=== PATIENT | female | born 1960 | race Caucasian/White ===

== ENCOUNTER → 2016-08-13 | Outpatient (CLI) | payer BC ==
[~2016-08-13] MED LIST: B-COCAP2 PO; HRBLS PO; LEVO100T7 PO; MULT-506 PO
--- NOTE | 2016-08-13 16:21 | MAMMOGRAPHY REPORT ---
BILATERAL DIGITAL SCREENING MAMMOGRAM TOMOSYNTHESIS WITH CAD: 08/13/2016 CLINICAL HISTORY: Routine screening. Patient has no complaints. TECHNIQUE: Breast tomosynthesis in addition to standard 2D mammography was performed. Current study was also evaluated with a Computer Aided Detection (CAD) system. COMPARISON: Comparison is made to exams dated: 08/13/2015 mammogram, 06/24/2014 ultrasound, 06/24/2014 mammogram, 06/14/2014 mammogram, 07/03/2013 localization, and 06/21/2013 mammogram - [facility]. BREAST COMPOSITION: The tissue of both breasts is heterogeneously dense, which may obscure small ma sses. FINDINGS: No suspicious masses, calcifications, or areas of architectural distortion are noted in e ither breast. There has been no significant interval change compared to prior exams. Bilateral dipak gn appearing calcifications are not significantly changed. A linear scar marker denotes a scar in t he left breast. IMPRESSION: ACR BI-RADS CATEGORY 2: BENIGN There is no mammographic evidence of malignancy. A 1 year screening mammogram is recommended. The p atient will receive written notification of the results. Approximately 10% of breast cancers are not detected with mammography. A negative mammographic repor t should not delay biopsy if a clinically suggestive mass is present. Clari Lopez M.D. ah/:08/13/2016 15:26:50 Tube Drawing Supervisor: Natividad SALGADO(R)(M), [facility] letter sent: Normal 1/2 BI-RADS Code: ACR BI-RADS Category 2: Benign
== END | disposition home or self-care (01) ==
LOC: C.MAMM 12:01
PROVIDERS: ATTEND Obstetrics & Gynecology
DX: Z12.31 Encounter for screening mammogram for malignant neoplasm of breast (principal); Z91.040 Latex allergy status

== ENCOUNTER → 2017-05-11 | Outpatient (CLI) | payer BC | END | disposition home or self-care (01) | LOC: C.LABSPEC 11:06 | PROVIDERS: ATTEND Obstetrics & Gynecology | DX: Z11.3 Encounter for screening for infections with a predominantly sexual mode of transmission (principal) ==

== ENCOUNTER → 2017-08-16 | Outpatient (CLI) | payer BC ==
--- NOTE | 2017-08-17 07:49 | MAMMOGRAPHY REPORT ---
BILATERAL DIGITAL SCREENING MAMMOGRAM TOMOSYNTHESIS WITH CAD: 08/16/2017 CLINICAL HISTORY: Routine screening. Patient has no complaints. TECHNIQUE: Breast tomosynthesis in addition to standard 2D mammography was performed. Current study was also evaluated with a Computer Aided Detection (CAD) system. COMPARISON: Comparison is made to exams dated: 08/13/2016 mammogram, 08/13/2015 mammogram, 06/24/2014 m ammogram, 06/14/2014 mammogram, 06/21/2013 mammogram, and 06/13/2013 mammogram - [facility] enter. BREAST COMPOSITION: The tissue of both breasts is heterogeneously dense, which may obscure small mas ses. FINDINGS: A linear scar marker overlies the 12:00 to 1:00 left breast. There is expected architectur al distortion seen in the 12:00 posterior left breast in the CC projection, likely denoting the area of prior surgery. There are stable intramammary lymph nodes in the right upper outer quadrant, and a few stable round and punctate microcalcifications scattered bilaterally. No new suspicious mass, ar chitectural distortion or cluster of microcalcifications is seen. IMPRESSION: ACR BI-RADS CATEGORY 1: NEGATIVE There is no mammographic evidence of malignancy. A 1 year screening mammogram is recommended. The pa tient will receive written notification of the results. Approximately 10% of breast cancers are not detected with mammography. A negative mammographic report should not delay biopsy if a clinically suggestive mass is present. Lisseth Wallace M.D. ay/:08/16/2017 15:34:04 Pigment Mixer: Yesenia Ocampo RT(R)(M)(BD), [facility] letter sent: Normal 1/2 BI-RADS Code: ACR BI-RADS Category 1: Negative
== END | disposition home or self-care (01) ==
LOC: C.MAMM 13:01
PROVIDERS: ATTEND Obstetrics & Gynecology
DX: Z12.31 Encounter for screening mammogram for malignant neoplasm of breast (principal)

== ENCOUNTER 2020-02-07 08:36 | Observation (INO) ==
[2020-02-07] MEDS ORDERED: KETOROLAC TROMETHAMINE 15 MG/ML VIAL IV ONE (08:53)
[2020-02-07] MEDS ORDERED: MoRPHine SULFATE 4 MG/ML 1 ML CARP\\VIAL IV STA (08:53)
[2020-02-07] MEDS ORDERED: ONDANSETRON INJ 2 MG/ML 2 ML VIAL IV STA (08:53)
[2020-02-07] MEDS ORDERED: SODIUM CHLORIDE 0.9% 500 ML IV SCH (09:00)
--- NOTE | 2020-02-07 09:00 | Emergency Department Note ---
Impression & Plan Pleuritic chest pain, Pulmonary emboli, Fracture of proximal end of humerus, Elevated d-dimer ED Provider Note NAME: ANNETTE LANGSTON AGE: 59 SEX: F : 1960 ARRIVES VIA: Walk-In INFORMANT: [Patient] ED PROVIDER(S): [Romaine Dorman MD] CHIEF COMPLAINT: Right rib and abdominal pain HISTORY OF PRESENT ILLNESS: The patient is a 59-year-old female who is healing from a left proximal humerus fracture. She is in a sling. The patient states that she has not had a bowel movement in about 5 days. She does not feel like she has to move her bowels though. She thinks she may be constipated from the medication she is using to control her shoulder pain. The patient states that yesterday towards the evening hours, about 12 to 14 hours ago, she began to experience some right lateral rib pain. She had a hard time sleeping last night and then this morning, the pain became severe. The pain is sharp. It radiates to her right shoulder. She states taking a breath makes the pain worse. The pain is constant. The patient states that she has not really been short of breath, there has been no fever. She has not had nausea or vomiting. No urinary complaints. She has never experienced pain like this before. There has been no trauma recently other than the fall that caused the left shoulder injury. REVIEW OF SYSTEMS: See HPI for pertinent positives and negatives. A total of ten systems were reviewed and were otherwise negative. PMHx/PSHx: See Below SOCIAL HISTORY: See Below. PHYSICAL EXAM: GENERAL: Patient is in mild distress from pain. HEENT: No acute trauma, normocephalic atraumatic, mucous membranes moist, no nasal congestion, no scleral icterus. NECK: No stridor, no adenopathy, no meningismus, trachea is midline. LUNGS: Clear to auscultation bilaterally, no wheeze, no rhonchi, breath sounds equal. Chest: Nontender chest wall, nontender ribs, no rash. HEART: Without murmurs gallops or rubs, regular rate and rhythm. ABDOMEN: Soft, nontender, bowel sounds positive, no hernias, no peritonitis. I cannot elicit any pain with palpation of the right upper quadrant. EXTREMITIES: No cyanosis or edema. The left arm is in a sling. No extremity deformities. NEUROLOGIC: Oriented x 3, no acute motor or sensory deficits, no focal weakness. SKIN: No rash, no jaundice, no diaphoresis. DIFFERENTIAL DIAGNOSIS: Cardiac ischemia, aortic dissection, pulmonary embolism, pneumothorax, pancreatitis, free air, biliary colic, pneumonia, pericarditis, myocarditis, esophageal rupture, GERD, cholecystitis, pancreatitis, musculoskeletal, as well as other pathologies. EMERGENCY DEPARTMENT COURSE/PROCEDURES: ECG: Indication was chest pain. The ECG shows a normal sinus rhythm with an incomplete right bundle branch block. The rate is 77. There is no ST elevation, no PVCs. The QTc is 441 Continuous Cardiac Monitoring: An order was placed for continuous cardiac monitoring. The monitor shows a rate of 70 with normal sinus rhythm. Critical Care Note: I have personally spent 41 minutes of critical care time in the direct management of this patient. This includes bedside care, interpretation of diagnostic studies, and testing, discussion with consultants, patient, and family members, and other required patient management activities. This 41 minutes is in excess of all separately billable procedures. MEDICAL DECISION MAKING: There is no leukocytosis or concerning anemia. No coagulopathy. D-dimer is quite elevated making PE more likely. No significant electrolyte abnormality or kidney failure. There was some subtle elevation to the bilirubin. Lipase was unremarkable, no evidence for pancreatitis. ECG shows a sinus rhythm, no acute ischemia. Cardiac enzyme testing x1 is not consistent with acute cardiac injury. Chest film showed some patchy infiltrates versus possible pulmonary infarcts. Chest CT shows bilateral pulmonary emboli. No pneumonia. Abdominal and pelvis CT was essentially unremarkable. The patient presents with pleuritic chest pain. She did fracture her left shoulder recently. She appears to have bilateral pulmonary emboli on work-up. I do think the pulmonary emboli explain her pleuritic pain. The patient was given IV saline, she was given IV morphine. She received IV Zofran. Patient was eventually placed on IV heparin. She was given an IV heparin bolus and then placed on IV heparin drip. She received IV Toradol for additional pain control. The patient is in need of a hospital stay. She requires anticoagulation and a PE/DVT work-up. I did speak to the patient, I spoke with case management. The on-call hospitalist was consulted. 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 Last drink 10 days ago) Alcohol type: wine Hx Substance Use: No Preferred Language: Frisian Communication Ability: Effective Manager Food Beverage Required: No Beliefs That Will Affect Care: None marital status: Single Current Living Situation: Family Current Living Situation Comment: daughter lives with her- has eye problem and depression/anxiety current occupational status: employed current occupation: [employer] Other Information That Helps Us Care for You: No Feels Safe at Home: Yes Safety Concerns: Feels Safe At This Time in current or past relationships, have you been: other Physical Activity Frequency: 5-6 Times per Week Physical Activity Frequency Comment: works out at [employer] gym Assistive Devices: Glasses Allergies Allergies Allergy/AdvReac Type Severity Reaction Status Date / Time levothyroxine Allergy Intermediate BACK OF Verified 02/07/20 09:52 THROAT FELT REAL WEIRD naproxen Allergy Intermediate Swelling Verified 02/07/20 09:52 procaine Allergy Intermediate SORES IN Verified 02/07/20 09:52 MOUTH WHEN GIVEN IN MOUTH latex Allergy Mild SKIN Verified 02/07/20 09:52 IRRITATION lidocaine Allergy Unknown Unknown Verified 02/07/20 09:52 Home Meds Home Medications Medication Instructions Recorded Confirmed cholecalciferol (vitamin D3) 25 25 mcg PO DAILY tab 02/27/19 02/07/20 mcg (1,000 unit) tablet lorazepam 0.5 mg tablet 0.5 mg PO TID PRN tab 02/27/19 02/07/20 multivitamin 1 tab PO DAILY 02/27/19 02/07/20 ascorbic acid (vitamin C) [Vitamin 1 g PO DAILY 01/27/20 02/07/20 C] fluticasone propionate [Flonase] 2 spray INTRANASAL DAILY 01/27/20 02/07/20 levothyroxine [Synthroid] 100 mcg PO QAM 01/27/20 02/07/20 olopatadine [Pataday] 1 drp OPB DAILY 01/27/20 02/07/20 vitamin B complex 1 tab PO DAILY 01/27/20 02/07/20 Results & Data (ED) Vital Signs Vital Signs - 24 hr 02/07/20 08:37 02/07/20 08:41 02/07/20 09:49 Temperature 37.4 C Temperature Source Oral Pulse Rate 82 Pulse Rate from SpO2 Sensor Respiratory Rate 20 Respiratory Effort / Characteristics Non-Labored Spontaneous Non-Labored Respiratory Depth Normal Respiratory Pattern Regular Blood Pressure 156/92 H Blood Pressure Mean 113 Pulse Oximetry 95 96 Oxygen Delivery Method Room Air Room Air Room Air Sepsis Recent Fever Within 48 Hours No Sepsis New/Unexplained Change in Mental Status N/A Sepsis Action Taken by Nursing No Action Required 02/07/20 10:00 02/07/20 10:02 02/07/20 10:45 Temperature Temperature Source Pulse Rate 74 74 77 Pulse Rate from SpO2 Sensor 75 75 80 Respiratory Rate 20 22 22 Respiratory Effort / Characteristics Respiratory Depth Respiratory Pattern Blood Pressure 133/89 Blood Pressure Mean 97 Pulse Oximetry 98 97 93 Oxygen Delivery Method Sepsis Recent Fever Within 48 Hours Sepsis New/Unexplained Change in Mental Status Sepsis Action Taken by Nursing 02/07/20 11:00 02/07/20 11:01 02/07/20 11:30 Temperature Temperature Source Pulse Rate 72 76 76 Pulse Rate from SpO2 Sensor 75 76 76 Respiratory Rate 23 25 H 23 Respiratory Effort / Characteristics Respiratory Depth Respiratory Pattern Blood Pressure 144/91 H 151/97 H Blood Pressure Mean 103 109 Pulse Oximetry 98 96 96 Oxygen Delivery Method Sepsis Recent Fever Within 48 Hours Sepsis New/Unexplained Change in Mental Status Sepsis Action Taken by Nursing 02/07/20 12:00 02/07/20 12:30 02/07/20 13:00 Temperature Temperature Source Pulse Rate 79 75 71 Pulse Rate from SpO2 Sensor Respiratory Rate 25 H 22 20 Respiratory Effort / Characteristics Respiratory Depth Respiratory Pattern Blood Pressure 135/87 130/88 124/84 Blood Pressure Mean 103 93 98 Pulse Oximetry Oxygen Delivery Method Sepsis Recent Fever Within 48 Hours Sepsis New/Unexplained Change in Mental Status Sepsis Action Taken by Nursing 02/07/20 13:30 02/07/20 14:00 02/07/20 14:30 Temperature Temperature Source Pulse Rate 66 69 67 Pulse Rate from SpO2 Sensor Respiratory Rate 14 21 15 Respiratory Effort / Characteristics Respiratory Depth Respiratory Pattern Blood Pressure 125/82 128/86 127/81 Blood Pressure Mean 86 94 88 Pulse Oximetry Oxygen Delivery Method Sepsis Recent Fever Within 48 Hours Sepsis New/Unexplained Change in Mental Status Sepsis Action Taken by Nursing 02/07/20 15:00 Temperature Temperature Source Pulse Rate 67 Pulse Rate from SpO2 Sensor Respiratory Rate 15 Respiratory Effort / Characteristics Respiratory Depth Respiratory Pattern Blood Pressure 127/81 Blood Pressure Mean 89 Pulse Oximetry Oxygen Delivery Method Sepsis Recent Fever Within 48 Hours Sepsis New/Unexplained Change in Mental Status Sepsis Action Taken by Assisted Medications Current Medication List: was personally reviewed by me Laboratory Data Attestation: I reviewed the patient's lab results. Result diagrams: 02/07/20 09:16 02/07/20 09:16 Lab Results 02/07/20 02/07/20 02/07/20 Range/Units 09:16 09:16 09:16 WBC 10.72 (4.8-10.8) K/uL RBC 3.98 L (4.2-5.4) M/uL Hgb 12.8 (12.0-16.0) g/dL Hct 38.1 (37-47) % MCV 95.7 (80-100) fL MCH 32.2 (25-34) pg MCHC 33.6 (32-36) g/dL RDW Std Deviation 44.5 (36.4-46.3) fL RDW Coeff of Agustín 12.7 (11.5-14.5) % Plt Count 299 (130-400) K/uL MPV 10.2 (7.4-10.4) fL Immature Gran % (Auto) 0.3 % Neut % (Auto) 80.9 % Lymph % (Auto) 9.5 % Jerome % (Auto) 8.9 % Eos % (Auto) 0.3 % Baso % (Auto) 0.1 % Neut # (Auto) 8.68 H (1.4-6.5) K/uL Lymph # (Auto) 1.02 L (1.2-3.4) K/uL Jerome # (Auto) 0.95 H (0.11-0.59) K/uL Eos # (Auto) 0.03 (0-0.5) K/uL Baso # (Auto) 0.01 (0-0.2) K/uL Immature Gran # (Auto) 0.03 H (0.00-0.02) K/uL PT 11.3 (9.0-12.0) Seconds INR 1.1 (0.9-1.1) APTT 32.0 H (21.0-31.0) Seconds PTT Ratio 1.1 D-Dimer 4020 H* (0-500) ug/L FEU Sodium 134 L (136-145) mmol/L Potassium 3.5 (3.5-5.1) mmol/L Chloride 101 (98-107) mmol/L Carbon Dioxide 26 (21-32) mmol/L Anion Gap 7.0 (3-11) BUN 9 (7-18) mg/dl Creatinine 0.78 (0.6-1.2) mg/dl Est Cr Clr Drug Dosing 76.5 ml/min Est GFR ( Amer) 97.1 Est GFR (Non-Af Amer) 83.8 BUN/Creatinine Ratio 12.0 (10-20) Glucose 113 H (70-99) mg/dl Calcium 9.5 (8.5-10.1) mg/dl Magnesium 2.0 (1.8-2.4) mg/dl Total Bilirubin 1.3 H (0.2-1) mg/dl AST 12 L (15-37) U/L ALT 18 (12-78) U/L Alkaline Phosphatase 90 (45-117) U/L Troponin I < 0.015 (0-0.045) ng/ml Total Protein 8.4 H (6.4-8.2) gm/dl Albumin 3.7 (3.4-5.0) gm/dl Globulin 4.7 H (2.5-4.0) gm/dl Albumin/Globulin Ratio 0.8 L (0.9-2) Lipase 111 (73-393) U/L COVID-19 Eval Order COVID-19 PCR (Negative) 02/07/20 02/07/20 Range/Units 12:25 12:25 WBC (4.8-10.8) K/uL RBC (4.2-5.4) M/uL Hgb (12.0-16.0) g/dL Hct (37-47) % MCV (80-100) fL MCH (25-34) pg MCHC (32-36) g/dL RDW Std Deviation (36.4-46.3) fL RDW Coeff of Agustín (11.5-14.5) % Plt Count (130-400) K/uL MPV (7.4-10.4) fL Immature Gran % (Auto) % Neut % (Auto) % Lymph % (Auto) % Jerome % (Auto) % Eos % (Auto) % Baso % (Auto) % Neut # (Auto) (1.4-6.5) K/uL Lymph # (Auto) (1.2-3.4) K/uL Jerome # (Auto) (0.11-0.59) K/uL Eos # (Auto) (0-0.5) K/uL Baso # (Auto) (0-0.2) K/uL Immature Gran # (Auto) (0.00-0.02) K/uL PT (9.0-12.0) Seconds INR (0.9-1.1) APTT (21.0-31.0) Seconds PTT Ratio D-Dimer (0-500) ug/L FEU Sodium (136-145) mmol/L Potassium (3.5-5.1) mmol/L Chloride (98-107) mmol/L Carbon Dioxide (21-32) mmol/L Anion Gap (3-11) BUN (7-18) mg/dl Creatinine (0.6-1.2) mg/dl Est Cr Clr Drug Dosing ml/min Est GFR ( Amer) Est GFR (Non-Af Amer) BUN/Creatinine Ratio (10-20) Glucose (70-99) mg/dl Calcium (8.5-10.1) mg/dl Magnesium (1.8-2.4) mg/dl Total Bilirubin (0.2-1) mg/dl AST (15-37) U/L ALT (12-78) U/L Alkaline Phosphatase (45-117) U/L Troponin I (0-0.045) ng/ml Total Protein (6.4-8.2) gm/dl Albumin (3.4-5.0) gm/dl Globulin (2.5-4.0) gm/dl Albumin/Globulin Ratio (0.9-2) Lipase (73-393) U/L COVID-19 Eval Order Covid19 Done at [facility] COVID-19 PCR NEGATIVE (Negative) Administered Medications Heparin Sodium/Dextrose (Heparin Sodium/Dextrose) 25,000 units in 500 mls @ 24 mls/hr IV .[id number] SILVIA; Protocol Stop: 03/08/20 11:14 Last Admin: 02/07/20 11:49 Dose: 1,200 units/hr, 24 mls/hr Documented by: [id number] Cosigned by: [id number] Discontinued Medications Heparin Sodium (Porcine) (Heparin Sod 5,000 Unit/0.5 Ml Vial) Confirm Administered Dose 5,000 units .ROUTE .STK-MED ONE Stop: 02/07/20 11:32 Last Admin: 02/07/20 11:49 Dose: 5,000 units Documented by: [id number] Cosigned by: [id number] Heparin Sodium/Dextrose (Heparin Iv Standard With Bolus) 1 ea IV NOW STA; Protocol Stop: 02/07/20 11:14 Last Admin: 02/07/20 11:49 Dose: Not Given Documented by: [id number] Sodium Chloride (Nss) 500 mls @ 999 mls/hr IV .Q31M [facility] Stop: 02/07/20 09:30 Last Infusion: 02/07/20 10:10 Dose: 0 mls/hr Documented by: [id number] Admin: 02/07/20 09:42 Dose: 999 mls/hr Documented by: [id number] Ioversol (Optiray 320 125ml) 120 ml IV ONCE ONE Stop: 02/07/20 10:44 Last Admin: 02/07/20 10:44 Dose: 120 ml Documented by: [id number] Ketorolac Tromethamine (Ketorolac Tromethamine 15 Mg/Ml Vial) 10 mg IV NOW ONE Stop: 02/07/20 08:54 Last Admin: 02/07/20 09:42 Dose: 10 mg Documented by: [id number] Morphine Sulfate (Morphine Sulfate 4 Mg/Ml 1 Ml Carp\Vial) 4 mg IV NOW STA Stop: 02/07/20 08:54 Last Admin: 02/07/20 09:42 Dose: 4 mg Documented by: [id number] Ondansetron HCl (Ondansetron Inj 2 Mg/Ml 2 Ml Vial) 4 mg IV NOW STA Stop: 02/07/20 08:54 Last Admin: 02/07/20 09:42 Dose: 4 mg Documented by: [id number] Imaging Data Radiologist's Impression: XR chest 1V portable CLINICAL HISTORY: Atypical chest pain COMPARISON STUDY: 01/27/2020 FINDINGS: The heart is borderline enlarged. There is blunting of both lateral costophrenic angle suggesting trace effusions. There is airspace opacity at the right lateral lung base. This could represent pneumonia, atelectasis, or pulmonary infarct. There is also a subtle opacity at the left medial lung base.[ IMPRESSION: 1. Small bilateral pleural effusions 2. Bibasilar pleural-based pulmonary opacities. These could represent pneumonia, atelectasis, or pulmonary infarction. CT ANGIOGRAM OF THE CHEST; CT SCAN OF THE ABDOMEN AND PELVIS WITH IV CONTRAST CLINICAL HISTORY: Atypical chest pain. Right upper quadrant abdominal pain. COMPARISON STUDY: Chest x-ray dated 02/07/2020. Pelvic ultrasound dated 03/21/2019. TECHNIQUE: Following the IV administration of 120 of Optiray 320, CT angiogram of the chest is performed from the upper abdomen to the thoracic inlet utilizing the pulmonary embolus protocol. Images are reviewed in the axial, sagittal, coronal planes. 3-D MIPS images are created and assessed. Subsequently, CT scan of the abdomen and pelvis was performed from the lung bases to the proximal femora. Images are reviewed in the axial, sagittal, and coronal planes. IV contrast was administered without complication. A dose lowering technique was ut ilized adhering to the principles of ALARA. The examination is degraded by streak artifact from the left arm which could not be elevated above the chest or abdomen as well as mild motion artifact. CT DOSE: 900.68 mGy.cm FINDINGS: CHEST: Thyroid: Atrophic. Thoracic aorta: The thoracic aorta is normal in caliber and demonstrates bovine variant arch anatomy. No dissection is seen. Pulmonary vasculature: The pulmonary trunk is dilated, measuring 3.9 cm in diameter. This suggests pulmonary artery hypertension. There are segmental and subsegmental pulmonary emboli within branches of the right lower lobe pulmonary artery. Segmental pulmonary emboli are also seen within the left upper lobe pu lmonary artery. Heart: The heart is mildly enlarged and without pericardial effusion. Lungs and pleural spaces: Evaluation of the lung parenchyma is modestly degraded by motion artifact. There are trace pleural effusions. Dependent consolidation is seen at both lung bases. There is a 9 mm irregular pulmonary nodule in the left upper lobe seen on image #175. Mediastinum: There is no mediastinal lymphadenopathy. Tracey: Clear. Axillae: There is no axillary lymphadenopathy. Bony thorax: The skeletal structures are osteopenic. Degenerative change and mild hyperkyphosis is noted in the thoracic spine. Arthritic changes seen in the shoulders. There is a comminuted fracture of the left humeral head and neck. No lytic or blastic lesions are identified. ABDOMEN AND PELVIS: Liver: The contrast-enhanced liver is normal in size, contour, and attenuation. There is no intrahepatic or ductal dilatation. The hepatic veins and portal veins are patent. Gallbladder: Unremarkable. Spleen: Normal in size and attenuation. Pancreas: Unremarkable. Adrenal glands: Unremarkable. Kidneys: The contrast enhanced kidneys are normal in size and without hydronephrosis. The kidneys enhance symmetrically. Abdominal vasculature: The abdominal aorta is normal in course and caliber. Stomach and bowel: There is a small hiatal hernia. No bowel obstruction is seen. The appendix is well-visualized and normal. Peritoneum: There is no intraperitoneal free air or abdominal ascites. There is a fat-containing umbilical hernia. Lymphadenopathy: None. Pelvic viscera: The bladder is mildly distended but otherwise normal in appearance. The uterus and adnexa are normal as visualized. Skeletal structures: The skeletal structures are osteopenic. Mild lumbosacral spondylosis is observed. A hemitransitional left lumbosacral segment is incidentally noted. No lytic or blastic lesions are seen. IMPRESSION: 1. Bilateral pulmonary emboli as above, greatest involving the segmental and subsegmental branches of the right lower lobe. 2. Trace pleural effusions with dependent consolidation. This could represent atelectasis and/or an infectious/inflammatory pneumonitis and clinical correlation will be required. 3. Cardiac enlargement with evidence of pulmonary artery hypertension. 4. There is a 9 mm irregular pulmonary nodule in the left upper lobe. This is pathologically indeterminant and follow-up is recommended as per the Fleischner criteria. See below. 5. There is a comminuted fracture of the left humeral head and neck. 6. There are no acute infectious or inflammatory findings in the abdomen or pelvis. 7. Additional findings as above. Blood Pressure Blood Pressure Findings: Elevated blood pressure Blood Pressure Disposition: further management by hospitalist Discharge Plan Visit Data Chief Complaint: Shortness of Breath/Dyspnea Stated Complaint: PAIN IN RIGHT SIDE, FEVER, SHORT OF BREATH ED Provider: Romaine Dorman Discharge Problem: Pleuritic chest pain, Pulmonary emboli, Fracture of proximal end of humerus, Elevated d-dimer Patient Disposition: Admitted As Inpatient Condition: Good Discharge Instructions Interventions: ED Discharge Assessment Last Done: 02/07/20 15:24 Forms Stand Alone Forms: [employer] Prescriptions Prescriptions: No Action lorazepam 0.5 mg tablet 0.5 mg PO TID PRN (Reason: Anxiety) RF: 0 multivitamin [Daily Multi-Vitamin] tablet 1 tab PO DAILY RF: 0 cholecalciferol (vitamin D3) 25 mcg (1,000 unit) tablet 25 mcg PO DAILY RF: 0 ascorbic acid (vitamin C) [Vitamin C] 1,000 mg Tablet 1 g PO DAILY RF: 0 levothyroxine [Synthroid] 100 mcg tablet 100 mcg PO QAM RF: 0 vitamin B complex Tablet 1 tab PO DAILY RF: 0 fluticasone propionate [Flonase] 50 mcg/actuation [place],Suspension 2 spray INTRANASAL DAILY RF: 0 olopatadine [Pataday] 0.2 % Drops 1 drp OPB DAILY RF: 0 Referrals Referrals: Clive Link DO [Primary Care Provider] - Discharge Problem: Pulmonary emboli Qualifiers: Pulmonary embolism type: multiple subsegmental (without acute cor pulmonale) Qualified Code(s): I26.94 - Multiple subsegmental pulmonary emboli without acute cor pulmonale Fracture of proximal end of humerus Qualifiers: Encounter type: subsequent encounter Fracture type: closed Fracture morphology: unspecified fracture morphology Laterality: left Fracture healing: with routine healing Qualified Code(s): S42.202D - Unspecified fracture of upper end of left humerus, subsequent encounter for fracture with routine healing
--- NOTE | 2020-02-07 09:15 | XRay Report ---
XR chest 1V portable CLINICAL HISTORY: Atypical chest pain COMPARISON STUDY: 01/27/2020 FINDINGS: The heart is borderline enlarged. There is blunting of both lateral costophrenic angle sugg esting trace effusions. There is airspace opacity at the right lateral lung base. This could represen t pneumonia, atelectasis, or pulmonary infarct. There is also a subtle opacity at the left medial gabi g base.[ IMPRESSION: 1. Small bilateral pleural effusions 2. Bibasilar pleural-based pulmonary opacities. These could represent pneumonia, atelectasis, or pulm onary infarction. ACT 112: Negative or not required by law. Electronically signed by: Marcos Ma M.D. 02/07/2020 9:13 AM
[2020-02-07 09:29] LABS: Basophils # (auto) 0.01 K/uL (0-0.2); Basophils % (auto) 0.1 %; Eosinophils # (auto) 0.03 K/uL (0-0.5); Eosinophils % (auto) 0.3 %; Hematocrit (blood only) 38.1 % (37-47); Hemoglobin 12.8 g/dL (12.0-16.0); Immature Granulocytes # (auto) 0.03 K/uL (0.00-0.02); Immature Granulocytes % (auto) 0.3 %; Lymphocytes # (auto) 1.02 K/uL (1.2-3.4); Lymphocytes % (auto) 9.5 %; Mean Corpuscular Hemoglobin 32.2 pg (25-34); Mean Corpuscular Hgb Conc 33.6 g/dL (32-36); Mean Corpuscular Volume 95.7 fL (80-100); Mean Platelet Volume 10.2 fL (7.4-10.4); Monocytes # (auto) 0.95 K/uL (0.11-0.59); Monocytes % (auto) 8.9 %; Neutrophils # (auto) 8.68 K/uL (1.4-6.5); Neutrophils % (auto) 80.9 %; Platelet Count 299 K/uL (130-400); RDW Coefficient of Variation 12.7 % (11.5-14.5); RDW Standard Deviation 44.5 fL (36.4-46.3); Red Blood Count 3.98 M/uL (4.2-5.4); White Blood Count 10.72 K/uL (4.8-10.8)
[2020-02-07 09:51] LABS: Alanine Aminotransferase 18 U/L (12-78); Albumin Level 3.7 gm/dl (3.4-5.0); Aspartate Aminotransferase 12 U/L (15-37); Blood Urea Nitrogen 9 mg/dl (7-18); Calcium 9.5 mg/dl (8.5-10.1); Carbon Dioxide 26 mmol/L (21-32); Chloride 101 mmol/L (98-107); Creatinine Clr Calc Pharmacy 76.5 ml/min; Est GFR (African American) 97.1; Est GFR (Non-African American) 83.8; Glucose 113 mg/dl (70-99); Lipase 111 U/L (73-393); Potassium 3.5 mmol/L (3.5-5.1); Sodium 134 mmol/L (136-145)
[2020-02-07 09:52] LABS: INR 1.1 (0.9-1.1); Partial Thromboplastin Ratio 1.1; Prothrombin Time 11.3 Seconds (9.0-12.0)
[2020-02-07 09:56] LABS: Albumin Globulin Ratio 0.8 (0.9-2); Alkaline Phosphatase 90 U/L (45-117); Bilirubin,Total 1.3 mg/dl (0.2-1); Globulin 4.7 gm/dl (2.5-4.0); Total Protein 8.4 gm/dl (6.4-8.2); Troponin I < 0.015 ng/ml (0-0.045)
[2020-02-07 10:03] LABS: D Dimer 4020 ug/L FEU (0-500)
[2020-02-07] MEDS ORDERED: OPTIRAY 320 125ml IV ONE (10:43)
--- NOTE | 2020-02-07 10:58 | CT Scan Report ---
CT ANGIOGRAM OF THE CHEST; CT SCAN OF THE ABDOMEN AND PELVIS WITH IV CONTRAST CLINICAL HISTORY: Atypical chest pain. Right upper quadrant abdominal pain. COMPARISON STUDY: Chest x-ray dated 02/07/2020. Pelvic ultrasound dated 03/21/2019. TECHNIQUE: Following the IV administration of 120 of Optiray 320, CT angiogram of the chest is perfor med from the upper abdomen to the thoracic inlet utilizing the pulmonary embolus protocol. Images are reviewed in the axial, sagittal, coronal planes. 3-D MIPS images are created and assessed. Subsequen tly, CT scan of the abdomen and pelvis was performed from the lung bases to the proximal femora. Imag es are reviewed in the axial, sagittal, and coronal planes. IV contrast was administered without comp lication. A dose lowering technique was utilized adhering to the principles of ALARA. The examination is degraded by streak artifact from the left arm which could not be elevated above the chest or abdo men as well as mild motion artifact. CT DOSE: 900.68 mGy.cm FINDINGS: CHEST: Thyroid: Atrophic. Thoracic aorta: The thoracic aorta is normal in caliber and demonstrates bovine variant arch anatomy. No dissection is seen. Pulmonary vasculature: The pulmonary trunk is dilated, measuring 3.9 cm in diameter. This suggests pu lmonary artery hypertension. There are segmental and subsegmental pulmonary emboli within branches of the right lower lobe pulmonary artery. Segmental pulmonary emboli are also seen within the left uppe r lobe pulmonary artery. Heart: The heart is mildly enlarged and without pericardial effusion. Lungs and pleural spaces: Evaluation of the lung parenchyma is modestly degraded by motion artifact. There are trace pleural effusions. Dependent consolidation is seen at both lung bases. There is a 9 m m irregular pulmonary nodule in the left upper lobe seen on image #175. Mediastinum: There is no mediastinal lymphadenopathy. Tracey: Clear. Axillae: There is no axillary lymphadenopathy. Bony thorax: The skeletal structures are osteopenic. Degenerative change and mild hyperkyphosis is no mariah in the thoracic spine. Arthritic changes seen in the shoulders. There is a comminuted fracture of the left humeral head and neck. No lytic or blastic lesions are identified. ABDOMEN AND PELVIS: Liver: The contrast-enhanced liver is normal in size, contour, and attenuation. There is no intrahepa tic or ductal dilatation. The hepatic veins and portal veins are patent. Gallbladder: Unremarkable. Spleen: Normal in size and attenuation. Pancreas: Unremarkable. Adrenal glands: Unremarkable. Kidneys: The contrast enhanced kidneys are normal in size and without hydronephrosis. The kidneys enh ance symmetrically. Abdominal vasculature: The abdominal aorta is normal in course and caliber. Stomach and bowel: There is a small hiatal hernia. No bowel obstruction is seen. The appendix is wel l-visualized and normal. Peritoneum: There is no intraperitoneal free air or abdominal ascites. There is a fat-containing umbi lical hernia. Lymphadenopathy: None. Pelvic viscera: The bladder is mildly distended but otherwise normal in appearance. The uterus and ad nexa are normal as visualized. Skeletal structures: The skeletal structures are osteopenic. Mild lumbosacral spondylosis is observed . A hemitransitional left lumbosacral segment is incidentally noted. No lytic or blastic lesions are seen. IMPRESSION: 1. Bilateral pulmonary emboli as above, greatest involving the segmental and subsegmental branches of the right lower lobe. 2. Trace pleural effusions with dependent consolidation. This could represent atelectasis and/or an i nfectious/inflammatory pneumonitis and clinical correlation will be required. 3. Cardiac enlargement with evidence of pulmonary artery hypertension. 4. There is a 9 mm irregular pulmonary nodule in the left upper lobe. This is pathologically indeterm inant and follow-up is recommended as per the Fleischner criteria. See below. 5. There is a comminuted fracture of the left humeral head and neck. 6. There are no acute infectious or inflammatory findings in the abdomen or pelvis. 7. Additional findings as above. Please refer to below summary of Fleischner criteria recommendations for follow-up of incidental CT n odules (Mary Alan, Guidelines for management of small pulmonary nodules detected on CT scans: A sta tement from the Fleischner Society, Radiology 237: [id number].) SOLID NODULES Solitary nodule size: <6 mm * low risk patients: no follow-up needed * high risk patients: optional CT at 12 months Solitary nodule size: 6-8 mm * low risk patients: follow-up at 6-12 months, then consider further follow-up at 18-24 months * high risk patients: initial follow-up CT at 6-12 months and then at 18-24 months if no change Solitary nodule size: >8 mm * either low or high risk patients - consider follow-up CT at 3 months, and/or CT-PET, and/or biopsy Multiple nodules size: <6 mm * low risk patients: no routine follow-up * high risk patients: optional CT at 12 months Multiple nodules size: 6-8 mm * low risk patients: follow-up at 3-6 months, then consider further follow-up at 18-24 months * high risk patients: follow-up at 3-6 months, then at 18-24 months if no change Multiple nodules size: >8 mm * low risk patients: follow-up at 3-6 months, then consider further follow-up at 18-24 months * high risk patients: follow-up at 3-6 months, then at 18-24 months if no change Note: newly detected indeterminate nodule in persons 35 years of age or older. * low risk patients: minimal or absent history of smoking and/or other known risk factors * high risk patients: history of smoking or of other known risk factors (e.g. first degree relative with lung cancer, or exposure to asbestos, radon, uranium) * if a nodule up to 8 mm is partly solid or is ground glass further follow-up is required after 24 m onths to exclude possible slow growing adenocarcinoma (JENAE) SUBSOLID NODULES Solitary pure ground-glass nodule * nodule size <6 mm - no CT follow-up required * nodule size >=6 mm - follow-up CT at 6-12 months, then every 2 years until 5 years Solitary part-solid nodule * nodule size <6 mm - no CT follow-up required * nodule size >=6 mm - follow-up CT at 3-6 months. If unchanged, and solid component remains <6 mm, then annual follow-up for 5 years Multiple subsolid nodules * nodule size <6 mm - follow-up CT at 3-6 months, consider further follow-up at 2 and 4 years if sta ble * nodule size >=6 mm - follow-up CT at 3-6 months, subsequent management based on the most suspiciou s nodule(s) ACT 112: Negative or not required by law. Electronically signed by: Romaine Estrada M.D. 02/07/2020 10:57 AM
[2020-02-07] MEDS ORDERED: HEPARIN SODIUM/DEXTROSE 25,000 UNITS/500 ML BAG IV SCH (11:15)
[2020-02-07] MEDS ORDERED: HEPARIN SOD 5,000 UNIT/0.5 ML VIAL ONE (11:31)
--- NOTE | 2020-02-07 11:43 | History & Physical Report ---
Date of Service February 07, 2020 Assessment & Plan (1) Bilateral pulmonary embolism: This is a 59-year-old female with PMH of hypothyroidism, mood disorder, history of alcohol use and recent left humerus fracture who presents with right rib pain and shortness of breath since yesterday was found to have bilateral pulmonary embolism. -History of left humerus fracture with LUE immobilized in sling, found to have bilateral PEs -CTA chest reveals bilateral pulmonary emboli as above, greatest involving the segmental and subsegmental branches of the right lower lobe -EKG with normal sinus rhythm, incomplete right bundle branch block, no significant change from previous. Initial troponin normal. Oxygen saturation 93% on room air -CTA with cardiac enlargement with evidence of pulmonary artery hypertension - will obtain 2D echo to evaluate for R heart strain -Started on IV heparin in ED. Interested in transitioning to DOAC tomorrow pending insurance coverage. Case mgmt consulted (2) Fever and chills: Endorsing fever, chills, myalgias, headache and SOB for past few days - no known COVID exposure but has been and out of doctors offices for orthopedic appointments -COVID PCR ordered and pending -Isolation precautions (3) Fracture of head of left humerus: Occurred 10 days ago, following with Dr. Lyn, who is recommending sling for another 10-14 days. Pain control with Tylenol, add p.o. oxycodone if needed (4) Constipation: Denies normal bowel movement for 5 days in setting of narcotics induced constipation. No evidence of bowel obstruction on CT abdomen pelvis. Begin Colace, MiraLAX (5) Solitary pulmonary nodule on lung CT: 9 mm irregular pulmonary nodule of left upper lobe found incidentally on CTA chest -Per Lito criteria, consider follow-up CT in 3 months -PCP to follow (6) Hypothyroidism: Continue levothyroxine (7) Anxiety: Continue Ativan as needed (8) Alcohol use disorder: Significant use, which has decreased. Patient still with episodes of binge drinking, most recently 10 days ago prior to fracturing humerus. No use since then DVT Ppx: IV heparin for bilateral PEs Code status: FULL PCP: Reymundo Link Dispo: Observation med tele. Plan to return home once medically stable. Patient seen in collaboration with Dr. Beck. Please see addendum. History of Present Illness Chief Complaint: Shortness of breath, right rib pain Primary Care Provider: Clive Link DO This is a 59-year-old female with PMH of hypothyroidism, mood disorder, history of alcohol use and recent left humerus fracture who presents with right rib pain and shortness of breath since yesterday. Patient fractured left humerus 10 days ago. Arm was placed in sling and patient has been followed by Dr. Lyn of orthopedics, who saw patient yesterday and recommended patient continue wearing sling for another 10-14 days. Last night around dinnertime, patient started to develop right rib pain with radiation up to right posterior shoulder. Also associated with inability to catch her breath. The symptoms persisted overnight and patient came to ED this morning for further evaluation. Of note, also endorses fever of 100 F, chills, muscle aches and headache for the past few days at home. Denies any known COVID exposure but has been in and out of the doctor's office for orthopedic visits. Continues to have chills and headache today. Also endorsing constipation from recent use of narcotic pain medication for shoulder pain. Denies lightheadedness, visual changes, chest pain, palpitations, wheezing, nausea, vomiting, abdominal pain, dysuria or diarrhea. Patient is currently afebrile. No leukocytosis. Stable hemoglobin of 12.8. CTA chest reveals bilateral pulmonary emboli as above, greatest involving the segmental and subsegmental branches of the right lower lobe. Started on IV heparin in ED. Was given Toradol morphine for pain, which is since resolved. Allergies Allergy/AdvReac Type Severity Reaction Status Date / Time levothyroxine Allergy Intermediate BACK OF Verified 02/07/20 09:52 THROAT FELT REAL WEIRD naproxen Allergy Intermediate Swelling Verified 02/07/20 09:52 procaine Allergy Intermediate SORES IN Verified 02/07/20 09:52 MOUTH WHEN GIVEN IN MOUTH latex Allergy Mild SKIN Verified 02/07/20 09:52 IRRITATION lidocaine Allergy Unknown Unknown Verified 02/07/20 09:52 Home Medications Home Medications Medication Instructions Recorded Confirmed Type cholecalciferol (vitamin D3) 25 25 mcg PO DAILY tab 02/27/19 02/07/20 History mcg (1,000 unit) tablet lorazepam 0.5 mg tablet 0.5 mg PO TID PRN tab 02/27/19 02/07/20 History multivitamin 1 tab PO DAILY 02/27/19 02/07/20 History ascorbic acid (vitamin C) [Vitamin 1 g PO DAILY 01/27/20 02/07/20 History C] fluticasone propionate [Flonase] 2 spray INTRANASAL DAILY 01/27/20 02/07/20 History levothyroxine [Synthroid] 100 mcg PO QAM 01/27/20 02/07/20 History olopatadine [Pataday] 1 drp OPB DAILY 01/27/20 02/07/20 History vitamin B complex 1 tab PO DAILY 01/27/20 02/07/20 History Past Med/Surg History Medical History Alcohol use disorder Anxiety Chlamydia Depression Fibroid H/O uterine leiomyoma Herpes oral HSV, 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 Last drink 10 days ago) Alcohol type: wine Hx Substance Use: No Preferred Language: Grenadian Communication Ability: Effective Manager Culture Required: No Beliefs That Will Affect Care: None marital status: Single Current Living Situation: Family Current Living Situation Comment: daughter lives with her- has eye problem and depression/anxiety current occupational status: employed current occupation: [employer] Other Information That Helps Us Care for You: No Feels Safe at Home: Yes Safety Concerns: Feels Safe At This Time in current or past relationships, have you been: other Physical Activity Frequency: 5-6 Times per Week Physical Activity Frequency Comment: works out at [employer] Assistive Devices: Glasses Review of Systems Review of Systems: At least ten systems reviewed and negative except as noted in the HPI. Physical Exam Physical Exam: General Appearance: WD/WN, vitals as above, NAD, sitting up in bed, pleasant, conversing easily Head: normocephalic, atraumatic Eyes: normal inspection, PERRL, conjunctivae normal, anicteric sclerae ENT: external ear and nose normal, oropharynx normal Neck: normal visual inspection, trachea midline, no thyromegaly Respiratory: normal respiratory effort, lungs clear to auscultation, no wheeze, rales, rhonchi. No accessory muscle use Cardiovascular: regular rate, rhythm, no murmur, normal peripheral pulses, no BLE edema. Vessels: no JVD Chest: normal inspection of chest Abdomen/GI: normal bowel sounds, soft, nontender, no hepatosplenomegaly Extremities/Musculoskeletal: + L arm in sling. LUE NVI. No cyanosis or clubbing, extremities motor strength 5/5 Neurologic: PERRL, EOMI, accommodation nl, no face palsy, no dysarthria, CN's II-XI intact bilaterally and moves all extremities Psychiatric: A+Ox3, euthymic affect Skin: no rashes, normal color, warm/dry Results & Data Results & Data ([facility]) Vital Signs (Past 12 Hours) Vital Signs Temp Pulse Resp BP Pulse Ox 02/07/20 10:45 77 22 93 02/07/20 10:02 74 22 97 02/07/20 10:00 74 20 133/89 98 02/07/20 09:49 96 02/07/20 08:41 37.4 C 82 20 156/92 H 95 Laboratory Results Short CBC 02/07/20 Range/Units 09:16 WBC 10.72 (4.8-10.8) K/uL Hgb 12.8 (12.0-16.0) g/dL Hct 38.1 (37-47) % Plt Count 299 (130-400) K/uL BMP 02/07/20 09:16 Sodium 134 L Potassium 3.5 Chloride 101 Carbon Dioxide 26 BUN 9 Creatinine 0.78 Glucose 113 H Calcium 9.5 Cardiac Enzymes 02/07/20 Range/Units 09:16 Troponin I < 0.015 (0-0.045) ng/ml Liver Function 02/07/20 Range/Units 09:16 Total Bilirubin 1.3 H (0.2-1) mg/dl AST 12 L (15-37) U/L ALT 18 (12-78) U/L Alkaline Phosphatase 90 (45-117) U/L Albumin 3.7 (3.4-5.0) gm/dl Diagnostic Findings CXR: IMPRESSION: 1. Small bilateral pleural effusions 2. Bibasilar pleural-based pulmonary opacities. These could represent pneumonia, atelectasis, or pulmonary infarction. CTA chest: IMPRESSION: 1. Bilateral pulmonary emboli as above, greatest involving the segmental and subsegmental branches of the right lower lobe. 2. Trace pleural effusions with dependent consolidation. This could represent atelectasis and/or an infectious/inflammatory pneumonitis and clinical correlation will be required. 3. Cardiac enlargement with evidence of pulmonary artery hypertension. 4. There is a 9 mm irregular pulmonary nodule in the left upper lobe. This is pathologically indeterminant and follow-up is recommended as per the Fleischner criteria. See below. 5. There is a comminuted fracture of the left humeral head and neck. 6. There are no acute infectious or inflammatory findings in the abdomen or pelvis. 7. Additional findings as above. CT abd/pelvis: IMPRESSION: 1. Bilateral pulmonary emboli as above, greatest involving the segmental and subsegmental branches of the right lower lobe. 2. Trace pleural effusions with dependent consolidation. This could represent atelectasis and/or an infectious/inflammatory pneumonitis and clinical correlation will be required. 3. Cardiac enlargement with evidence of pulmonary artery hypertension. 4. There is a 9 mm irregular pulmonary nodule in the left upper lobe. This is pathologically indeterminant and follow-up is recommended as per the Fleischner criteria. See below. 5. There is a comminuted fracture of the left humeral head and neck. 6. There are no acute infectious or inflammatory findings in the abdomen or pelvis. 7. Additional findings as above. ECG Rhythm: normal sinus Change: no significant change Additional Comments: Normal sinus rhythm Incomplete right bundle branch block Code Status & VTE Plan VTE Prophylaxis Plan VTE Prophylaxis will be ordered: Yes Supervising Physician Co-Signing Physician Notes Attending addendum: The patient was seen and examined in medical telemetry unit She had a left upper humerus fracture around 26 of last month and has been sedentary since then Complaining of pain with deep breathing with some shortness of breath since yesterday Noted to have bilateral pulmonary embolism on CT scan On examination Very anxious Hemodynamically stable Chest-decreased breath sounds lower lungs due to poor effort, no crackles, no pleural rub Heart-S1-S2, no murmur appreciated Abdomen-benign Extremities-no calf swelling and tenderness, left upper extremity is in sling, left arm seems to be swollen Admission labs, EKG and imaging studies reviewed Has provoked bilateral pulmonary embolism Will get echo and ultrasound of the left forearm Has been on intravenous heparin and plan to discharge on oral Eliquis Reviewed and agree with assessment and plan as outlined by ALVERTO Zhang DR (1) Fracture of head of left humerus Encounter type: initial encounter Fracture type: closed Qualified Code(s): S42.292A - Other displaced fracture of upper end of left humerus, initial encounter for closed fracture
[2020-02-07] MEDS ORDERED: POLYETHYLENE (MIRALAX) 17 GM PACK PO PRN (15:55)
[2020-02-07] MEDS ORDERED: ACETAMINOPHEN 500 MG TAB PO PRN (15:55)
[2020-02-07] MEDS ORDERED: ACETAMINOPHEN 325 MG TAB PO PRN (15:55)
[2020-02-07] MEDS ORDERED: LORazepam 0.5 MG TAB PO PRN (15:55)
[2020-02-07] MEDS ORDERED: ONDANSETRON INJ 2 MG/ML 2 ML VIAL IV PRN (15:55)
[2020-02-07] MEDS: OXYCODONE HCL IR 5 MG TAB (IMMEDIATE RELEASE) PO PRN (17:38)
--- NOTE | 2020-02-07 17:52 | Electrocardiogram Report ---
Test Reason : Blood Pressure : / mmHG Vent. Rate : 077 BPM Atrial Rate : 077 BPM P-R Int : 198 ms QRS Dur : 094 ms QT Int : 390 ms P-R-T Axes : 062 -05 074 degrees QTc Int : 441 ms Normal sinus rhythm Incomplete right bundle branch block Borderline ECG When compared with ECG of 07-NOV-2017 16:39, No significant change was found Confirmed by Andrew Suero ([id number]) on 02/07/2020 5:51:40 PM Referred By: REFERRED SELF Confirmed By:Kerwin Suero
[2020-02-07 18:20] LABS: Partial Thromboplastin Ratio 3.6
[2020-02-07 18:26] LABS: Partial Thromboplastin Time 101.5 Seconds (21.0-31.0)
[2020-02-07] MEDS: DOCUSATE SODIUM 100 MG CAP PO SCH (20:35)
[2020-02-08 01:27] LABS: Hematocrit (blood only) 32.8 % (37-47); Hemoglobin 11.1 g/dL (12.0-16.0); Mean Corpuscular Hemoglobin 32.4 pg (25-34); Mean Corpuscular Hgb Conc 33.8 g/dL (32-36); Mean Corpuscular Volume 95.6 fL (80-100); Mean Platelet Volume 10.1 fL (7.4-10.4); Platelet Count 274 K/uL (130-400); RDW Coefficient of Variation 12.7 % (11.5-14.5); RDW Standard Deviation 44.1 fL (36.4-46.3); Red Blood Count 3.43 M/uL (4.2-5.4); White Blood Count 7.18 K/uL (4.8-10.8)
[2020-02-08 01:46] LABS: BUN Creatinine Ratio 16.3 (10-20); Creatinine Clr Calc Pharmacy 78.5 ml/min; Est GFR (African American) 100.2; Est GFR (Non-African American) 86.5
[2020-02-08 01:47] LABS: Partial Thromboplastin Ratio 2.3
[2020-02-08 02:16] LABS: Potassium 4.2 mmol/L (3.5-5.1)
[2020-02-08] MEDS ORDERED: LEVOTHYROXINE SODIUM 100 MCG TABLET PO SCH (06:30)
[2020-02-08] MEDS: DOCUSATE SODIUM 100 MG CAP PO SCH (07:56)
[2020-02-08] MEDS: OXYCODONE HCL IR 5 MG TAB (IMMEDIATE RELEASE) PO PRN (08:01)
[2020-02-08] MEDS ORDERED: ASCORBIC ACID 500 MG TAB PO SCH (09:00)
[2020-02-08] MEDS ORDERED: FOLIC ACID 1 MG TAB PO SCH (09:00)
[2020-02-08] MEDS ORDERED: VITAMIN B COMPLEX TAB PO SCH (09:00)
[2020-02-08] MEDS ORDERED: FLUTICASONE PROPIONATE NA SPR 16 GM BTL NAE SCH (09:00)
[2020-02-08] MEDS ORDERED: THIAMINE HCL 100 MG TAB PO SCH (09:00)
[2020-02-08] MEDS ORDERED: CHOLECALCIFEROL 1,000 UNITS 25 MCG TAB PO SCH (09:00)
[2020-02-08] MEDS ORDERED: MULTIVITAMIN TAB PO SCH (09:00)
[2020-02-08] MEDS ORDERED: APIXABAN 5 MG TABLET PO SCH (09:15)
--- NOTE | 2020-02-08 12:19 | Ultrasound Report ---
US venous doppler UE LT CLINICAL HISTORY: Left humeral fracture. Left arm swelling COMPARISON STUDY: No previous studies for comparison. FINDINGS: No thrombus is visualized within the left internal jugular subclavian axillary or cephalic veins. There is thrombus present within the brachial and ulnar vein. IMPRESSION: Left brachial and ulnar vein DVT. ACT 112: Negative or not required by law. Electronically signed by: Marcos Ma M.D. 02/08/2020 12:18 PM
--- NOTE | 2020-02-08 16:24 | Hospitalist Progress Note ---
Date of Service February 08, 2020 Assessment & Plan (1) Bilateral pulmonary embolism: Bilateral pulmonary embolism Upper extremity DVT This is a 59-year-old female with PMH of hypothyroidism, mood disorder, history of alcohol use and recent left humerus fracture who presents with right rib pain and shortness of breath since yesterday was found to have bilateral pulmonary embolism. -History of left humerus fracture with LUE immobilized in sling, found to have bilateral PEs -CTA chest reveals bilateral pulmonary emboli as above, greatest involving the segmental and subsegmental branches of the right lower lobe IMPRESSION: Left brachial and ulnar vein DVT.IMPRESSION: Left brachial and ulnar vein DVT. - Doppler ultrasound left upper extremity: IMPRESSION: Left brachial and ulnar vein DVT. -EKG with normal sinus rhythm, incomplete right bundle branch block, no sign ificant change from previous. Initial troponin normal. Oxygen saturation 93% on room air -CTA with cardiac enlargement with evidence of pulmonary artery hypertension Echo: Pending -Started on IV heparin --> transition To Eliquis 10 mg twice daily x7 days, then 5 mg twice a day Likely a provoked DVT, PE secondary to left shoulder fracture Will need at least 3 months of anticoagulation Follow-up with primary care physician next week per discharge instructions Continue incentive spirometry (2) Fever and chills: Endorsing fever, chills, myalgias, headache and SOB for past few days - no known COVID exposure but has been and out of doctors offices for orthopedic appointments - COVID PCR: Negative - Denies cough, sputum production No leukocytosis, afebrile Fever likely secondary to underlying DVT and PE (3) Fracture of head of left humerus: Occurred 10 days ago, following with Dr. Lyn, who is recommending sling for another 10-14 days. Pain control with Tylenol, add p.o. oxycodone if needed (4) Constipation: Denies normal bowel movement for 5 days in setting of narcotics induced constipation. No evidence of bowel obstruction on CT abdomen pelvis. -- Senokot-S daily (5) Solitary pulmonary nodule on lung CT: 9 mm irregular pulmonary nodule of left upper lobe found incidentally on CTA chest -Per Lito criteria, consider follow-up CT in 3 months -PCP to follow (6) Hypothyroidism: Continue levothyroxine (7) Anxiety: Continue Ativan as needed (8) Alcohol use disorder: Significant use, which has decreased. Patient still with episodes of binge drinking, most recently 10 days ago prior to fracturing humerus. No use since then PCP: Reymundo Link Dispo: Discharge to home, follow-up with primary care physician next week Follow-up with orthopedic surgeon as scheduled Admission and Anticipated Discharge Date Admission Date: February 07, 2020 Subjective Follow-up for bilateral pulmonary embolism Seen sitting up in bed, comfortable, not in distress States dyspnea improved and chest pain with inspiration is improving Has mild discomfort left upper arm Denies dizziness, headache, palpitations, abdominal pain Denies other symptoms Review of Systems Review of Systems: All systems reviewed & are unremarkable except as noted in Subjective Physical Exam Physical Exam: General- oriented x 3, not in distress, speaks in sentences with no effort or accessory muscle use Eyes- anicteric Neck- no JVD Lungs- clear breath sounds bilaterally, no rales/wheezes Heart- normal rate, regular rhythm; no murmurs Abdomen- normal bowel sounds, nondistended, soft, nontender Extremities- Left arm: Sling in place Moderate edema noted in the upper arm, also has resolving hematoma medial aspect no pretibial edema, no calf tenderness Neuro- alert, oriented x 3; no gross focal neurologic deficits Skin- warm & dry Results & Data Results & Data ([facility]) Vital Signs (Past 12 Hours) Vital Signs Temp Pulse Pulse Pulse Pulse Pulse Resp 02/08/20 11:00 36.9 C 83 18 02/08/20 10:50 85 86 77 02/08/20 10:37 54 L 02/08/20 08:00 37.0 C 58 L 18 Resp Resp Resp BP Pulse Ox Pulse Ox Pulse Ox 02/08/20 11:00 111/71 94 02/08/20 10:50 18 18 18 93 91 02/08/20 10:37 02/08/20 08:00 123/79 95 Pulse Ox 02/08/20 11:00 02/08/20 10:50 95 02/08/20 10:37 02/08/20 08:00 (1) Fracture of head of left humerus Encounter type: initial encounter Fracture type: closed Qualified Code(s): S42.292A - Other displaced fracture of upper end of left humerus, initial encounter for closed fracture
--- NOTE | 2020-02-11 21:59 | Discharge Summary ---
Date of Service February 11, 2020 Admission HPI Per Admitting Provider This is a 59-year-old female with PMH of hypothyroidism, mood disorder, history of alcohol use and recent left humerus fracture who presents with right rib pain and shortness of breath since yesterday. Patient fractured left humerus 10 days ago. Arm was placed in sling and patient has been followed by Dr. Lyn of orthopedics, who saw patient yesterday and recommended patient continue wearing sling for another 10-14 days. Last night around dinnertime, patient started to develop right rib pain with radiation up to right posterior shoulder. Also associated with inability to catch her breath. The symptoms persisted overnight and patient came to ED this morning for further evaluation. Of note, also endorses fever of 100 F, chills, muscle aches and headache for the past few days at home. Denies any known COVID exposure but has been in and out of the doctor's office for orthopedic visits. Continues to have chills and headache today. Also endorsing constipation from recent use of narcotic pain medication for shoulder pain. Denies lightheadedness, visual changes, chest pain, palpitations, wheezing, nausea, vomiting, abdominal pain, dysuria or diarrhea. Patient is currently afebrile. No leukocytosis. Stable hemoglobin of 12.8. CTA chest reveals bilateral pulmonary emboli as above, greatest involving the segmental and subsegmental branches of the right lower lobe. Started on IV heparin in ED. Was given Toradol morphine for pain, which is since resolved. Admission Exam Per Admitting Provider General Appearance: WD/WN, vitals as above, NAD, sitting up in bed, pleasant, conversing easily Head: normocephalic, atraumatic Eyes: normal inspection, PERRL, conjunctivae normal, anicteric sclerae ENT: external ear and nose normal, oropharynx normal Neck: normal visual inspection, trachea midline, no thyromegaly Respiratory: normal respiratory effort, lungs clear to auscultation, no wheeze, rales, rhonchi. No accessory muscle use Cardiovascular: regular rate, rhythm, no murmur, normal peripheral pulses, no BLE edema. Vessels: no JVD Chest: normal inspection of chest Abdomen/GI: normal bowel sounds, soft, nontender, no hepatosplenomegaly Extremities/Musculoskeletal: + L arm in sling. LUE NVI. No cyanosis or clubbing, extremities motor strength 5/5 Neurologic: PERRL, EOMI, accommodation nl, no face palsy, no dysarthria, CN's II-XI intact bilaterally and moves all extremities Psychiatric: A+Ox3, euthymic affect Skin: no rashes, normal color, warm/dry Principal Diagnosis Bilateral pulmonary embolism Upper extremity DVT Discharge Exam General- oriented x 3, not in distress, speaks in sentences with no effort or accessory muscle use Eyes- anicteric Neck- no JVD Lungs- clear breath sounds bilaterally, no rales/wheezes Heart- normal rate, regular rhythm; no murmurs Abdomen- normal bowel sounds, nondistended, soft, nontender Extremities- Left arm: Sling in place Moderate edema noted in the upper arm, also has resolving hematoma medial aspect no pretibial edema, no calf tenderness Neuro- alert, oriented x 3; no gross focal neurologic deficits Skin- warm & dry Discharge Data Allergies Allergy/AdvReac Type Severity Reaction Status Date / Time levothyroxine Allergy Intermediate BACK OF Verified 02/07/20 09:52 THROAT FELT REAL WEIRD naproxen Allergy Intermediate Swelling Verified 02/07/20 09:52 procaine Allergy Intermediate SORES IN Verified 02/07/20 09:52 MOUTH WHEN GIVEN IN MOUTH latex Allergy Mild SKIN Verified 02/07/20 09:52 IRRITATION lidocaine Allergy Unknown Unknown Verified 02/07/20 09:52 Consultations 02/07/20 11:20 ED Decision to Admit Stat 02/07/20 15:55 Consult Case Management - Discharge Planning Routine Ordered Studies 02/07/20 08:53 CT abd pelvis IV con only Stat CT angio chest PE protocol Stat Thyroid: Atrophic. Thoracic aorta: The thoracic aorta is normal in caliber and demonstrates bovine variant arch anatomy. No dissection is seen. Pulmonary vasculature: The pulmonary trunk is dilated, measuring 3.9 cm in diameter. This suggests pulmonary artery hypertension. There are segmental and subsegmental pulmonary emboli within branches of the right lower lobe pulmonary artery. Segmental pulmonary emboli are also seen within the left upper lobe pulmonary artery. Heart: The heart is mildly enlarged and without pericardial effusion. Lungs and pleural spaces: Evaluation of the lung parenchyma is modestly degraded by motion artifact. There are trace pleural effusions. Dependent consolidation is seen at both lung bases. There is a 9 mm irregular pulmonary nodule in the left upper lobe seen on image #[id number]. Mediastinum: There is no mediastinal lymphadenopathy. Tracey: Clear. Axillae: There is no axillary lymphadenopathy. Bony thorax: The skeletal structures are osteopenic. Degenerative change and mild hyperkyphosis is noted in the thoracic spine. Arthritic changes seen in the shoulders. There is a comminuted fracture of the left humeral head and neck. No lytic or blastic lesions are identified. ABDOMEN AND PELVIS: Liver: The contrast-enhanced liver is normal in size, contour, and attenuation. There is no intrahepatic or ductal dilatation. The hepatic veins and portal veins are patent. Gallbladder: Unremarkable. Spleen: Normal in size and attenuation. Pancreas: Unremarkable. Adrenal glands: Unremarkable. Kidneys: The contrast enhanced kidneys are normal in size and without hydronephrosis. The kidneys enhance symmetrically. Abdominal vasculature: The abdominal aorta is normal in course and caliber. Stomach and bowel: There is a small hiatal hernia. No bowel obstruction is seen. The appendix is well-visualized and normal. Peritoneum: There is no intraperitoneal free air or abdominal ascites. There is a fat-containing umbilical hernia. Lymphadenopathy: None. Pelvic viscera: The bladder is mildly distended but otherwise normal in appearance. The uterus and adnexa are normal as visualized. Skeletal structures: The skeletal structures are osteopenic. Mild lumbosacral spondylosis is observed. A hemitransitional left lumbosacral segment is incidentally noted. No lytic or blastic lesions are seen. IMPRESSION: 1. Bilateral pulmonary emboli as above, greatest involving the segmental and subsegmental branches of the right lower lobe. 2. Trace pleural effusions with dependent consolidation. This could represent atelectasis and/or an infectious/inflammatory pneumonitis and clinical correlation will be required. 3. Cardiac enlargement with evidence of pulmonary artery hypertension. 4. There is a 9 mm irregular pulmonary nodule in the left upper lobe. This is pathologically indeterminant and follow-up is recommended as per the Fleischner criteria. See below. 5. There is a comminuted fracture of the left humeral head and neck. 6. There are no acute infectious or inflammatory findings in the abdomen or pelvis. 7. Additional findings as above. Please refer to below summary of Fleischner criteria recommendations for follow- up of incidental CT nodules (Mary Alan, Guidelines for management of small pulmonary nodules detected on CT scans: A statement from the Fleischner Society, Radiology 237: [id number].) SOLID NODULES Solitary nodule size: <6 mm * low risk patients: no follow-up needed * high risk patients: optional CT at 12 months Solitary nodule size: 6-8 mm * low risk patients: follow-up at 6-12 months, then consider further follow-up at 18-24 months * high risk patients: initial follow-up CT at 6-12 months and then at 18-24 months if no change Solitary nodule size: >8 mm * either low or high risk patients - consider follow-up CT at 3 months, and/or CT-PET, and/or biopsy Multiple nodules size: <6 mm * low risk patients: no routine follow-up * high risk patients: optional CT at 12 months Multiple nodules size: 6-8 mm * low risk patients: follow-up at 3-6 months, then consider further follow-up at 18-24 months * high risk patients: follow-up at 3-6 months, then at 18-24 months if no change Multiple nodules size: >8 mm * low risk patients: follow-up at 3-6 months, then consider further follow-up at 18-24 months * high risk patients: follow-up at 3-6 months, then at 18-24 months if no change Note: newly detected indeterminate nodule in persons 35 years of age or older. * low risk patients: minimal or absent history of smoking and/or other known risk factors * high risk patients: history of smoking or of other known risk factors (e.g. first degree relative with lung cancer, or exposure to asbestos, radon, uranium) * if a nodule up to 8 mm is partly solid or is ground glass further follow-up is required after 24 months to exclude possible slow growing adenocarcinoma (JENAE) SUBSOLID NODULES Solitary pure ground-glass nodule * nodule size <6 mm - no CT follow-up required * nodule size >=6 mm - follow-up CT at 6-12 months, then every 2 years until 5 years Solitary part-solid nodule * nodule size <6 mm - no CT follow-up required * nodule size >=6 mm - follow-up CT at 3-6 months. If unchanged, and solid component remains <6 mm, then annual follow-up for 5 years Multiple subsolid nodules * nodule size <6 mm - follow-up CT at 3-6 months, consider further follow-up at 2 and 4 years if stable * nodule size >=6 mm - follow-up CT at 3-6 months, subsequent management based on the most suspicious nodule(s) 02/08/20 US venous doppler UE LT Routine COMPARISON STUDY: No previous studies for comparison. FINDINGS: No thrombus is visualized within the left internal jugular subclavian axillary or cephalic veins. There is thrombus present within the brachial and ulnar vein. IMPRESSION: Left brachial and ulnar vein DVT. Hospital Course (1) Bilateral pulmonary embolism: Bilateral pulmonary embolism Upper extremity DVT This is a 59-year-old female with PMH of hypothyroidism, mood disorder, history of alcohol use and recent left humerus fracture who presents with right rib pain and shortness of breath since yesterday was found to have bilateral pulmonary embolism. -History of left humerus fracture with LUE immobilized in sling, found to have bilateral PEs -CTA chest reveals bilateral pulmonary emboli as above, greatest involving the segmental and subsegmental branches of the right lower lobe IMPRESSION: Left brachial and ulnar vein DVT.IMPRESSION: Left brachial and ulnar vein DVT. - Doppler ultrasound left upper extremity: IMPRESSION: Left brachial and ulnar vein DVT. -EKG with normal sinus rhythm, incomplete right bundle branch block, no significant change from previous. Initial troponin normal. Oxygen saturation 93% on room air -CTA with cardiac enlargement with evidence of pulmonary artery hypertension Echo: Pending -Started on IV heparin --> transition To Eliquis 10 mg twice daily x7 days, then 5 mg twice a day Likely a provoked DVT, PE secondary to left shoulder fracture Will need at least 3 months of anticoagulation Follow-up with primary care physician next week per discharge instructions Continue incentive spirometry Fracture of head of left humerus: Occurred 10 days ago, following with Dr. Lyn, who is recommending sling for another 10-14 days. Pain control with Tylenol, add p.o. oxycodone if needed (2) Fever and chills: Endorsing fever, chills, myalgias, headache and SOB for past few days - no known COVID exposure but has been and out of doctors offices for orthopedic appointments - COVID PCR: Negative - Denies cough, sputum production No leukocytosis, afebrile Fever likely secondary to underlying DVT and PE (3) Constipation: Denies normal bowel movement for 5 days in setting of narcotics induced constipation. No evidence of bowel obstruction on CT abdomen pelvis. -- Senokot-S daily (4) Solitary pulmonary nodule on lung CT: 9 mm irregular pulmonary nodule of left upper lobe found incidentally on CTA chest -Per Lito criteria, consider follow-up CT in 3 months -PCP to follow (5) Hypothyroidism: Continue levothyroxine (6) Anxiety: Continue Ativan as needed (7) Alcohol use disorder: Significant use, which has decreased. Patient still with episodes of binge drinking, most recently 10 days ago prior to fracturing humerus. No use since then PCP: Reymundo Link Dispo: Discharge to home, follow-up with primary care physician next week Follow-up with orthopedic surgeon as scheduled Total Time Total Time Spent Total Time Spent (In Minutes): >30 minutes Discharge Plan Discharge Items Patient Disposition: Home - Self-Care Reason For Visit: BILATERAL PES Discharge Diagnosis: ACUTE BILATERAL PULMONARY EMBOLISM, LEFT UPPER ARM DEEP VENOUS THROMBOSIS Condition on Discharge: Good Activity: As commented below Activity Comment: No heavy exertion Driving/Machine Use: No driving until allowed by orthopedic surgeon. Non-emergency contact: Primary Care Provider and Surgeon Call non-emergency contact if: you have any medication questions, your symptoms worsen, your pain is not controlled, your pain is worsening, your pain is unu sual for you, your pain is concerning for you and you have a fever Follow-up/Referrals: Clive Link, [Primary Care Provider] - 02/12/20 2:00 pm Diet: Heart Healthy Addtl Attending Provider Instructions: Please review your new medication list below and follow instructions carefully. Your new medications include: Eliquis-blood thinner For treatment of blood clots in the lungs and left upper arm Oxycodone-as needed for severe pain No driving while taking oxycodone [id number] constipation Please call primary care physician or return to the ER immediately if with worsening of symptoms, including worsening shortness of breath, chest pain, left upper arm pain or swelling, signs of bleeding. If you sustain any head injury, please proceed to the ER immediately for evaluation, even if you do not have any symptoms. Pending Studies at Discharge: No Stand-Alone Forms: [employer], Smoking Cessation Medications and DC Order Prescriptions: New Eliquis 5 mg Tablet 10 mg PO BID Qty: 14 RF: 0 Eliquis 5 mg Tablet 5 mg PO BID Qty: 30 RF: 2 oxycodone 5 mg Tablet 5 mg PO Q6H PRN (Reason: pain) Qty: 15 RF: 0 sennosides-docusate sodium [Senokot-S] 8.6-50 mg tablet 1 tab-cap PO DAILY Qty: 30 RF: 0 Continued lorazepam 0.5 mg tablet 0.5 mg PO TID PRN (Reason: Anxiety) RF: 0 multivitamin [Daily Multi-Vitamin] tablet 1 tab PO DAILY RF: 0 cholecalciferol (vitamin D3) 25 mcg (1,000 unit) tablet 25 mcg PO DAILY RF: 0 ascorbic acid (vitamin C) [Vitamin C] 1,000 mg Tablet 1 g PO DAILY RF: 0 levothyroxine [Synthroid] 100 mcg tablet 100 mcg PO QAM RF: 0 vitamin B complex Tablet 1 tab PO DAILY RF: 0 fluticasone propionate 50 mcg/actuation [place],Suspension 2 spray INTRANASAL DAILY RF: 0 olopatadine [Pataday] 0.2 % Drops 1 drp OPB DAILY RF: 0 Discharge Orders: Discharge Order (Routine); Ordered 02/08/20 Ordered By: Elmer Garcia Admission Data Admit Date/Time: 02/07/20 11:39 Attending Provider: Elmer Garcia Admit Provider: Doug Beck Primary Care Provider: Clive Link Other Providers: Doug Beck Other Interventions: Discharge Summary Assessment (RN) Last Done: 02/08/20 16:59
[2020-02-15] MEDS ORDERED: APIXABAN 5 MG TABLET PO SCH (09:00)
== END 2020-02-08 18:01 | disposition home or self-care (01) ==
LOC: ED 08:36 → 2W 08:36 → SUATTDRO 11:39 → 2W 15:24
DX: S42.292A Other displaced fracture of upper end of left humerus, initial encounter for closed fracture; I82.622 Acute embolism and thrombosis of deep veins of left upper extremity; I45.19 Other right bundle-branch block; Z88.8 Allergy status to other drugs, medicaments and biological substances; F10.10 Alcohol abuse, uncomplicated; I26.99 Other pulmonary embolism without acute cor pulmonale; R91.1 Solitary pulmonary nodule; I51.7 Cardiomegaly; Z88.6 Allergy status to analgesic agent; F32.9 Major depressive disorder, single episode, unspecified; R50.9 Fever, unspecified; R07.2 Precordial pain; Z91.040 Latex allergy status; E03.9 Hypothyroidism, unspecified; K59.00 Constipation, unspecified; Z88.4 Allergy status to anesthetic agent; F41.9 Anxiety disorder, unspecified